=== PATIENT | female | born 1955 | race Caucasian/White ===

== ENCOUNTER → 2016-08-29 | Day surgery (SDC) | payer OTHER ==
[~2016-08-29] VITALS: Ht 160 cm; Wt 75.7 kg
[~2016-08-29] MED LIST: ATIVAN0.5 M1 PO; CRESTOR10 M1 PO; PAXIL10 M1 PO; SYNTHROID125 MCG PO; SYNTHROID25 MCG PO
--- NOTE | 2016-08-29 11:33 | Operative Report ---
Operative/Inv Procedure Report Surgery Date: 08/29/16 Name of Procedure: Left L4 5 laminectomy, microdiscectomy Left L4 5 foraminotomy Pre-Operative Diagnosis: Left L4 5 stenosis, disc herniation Post-Operative Diagnosis: Same Estimated Blood Loss: scant Surgeon/Shingle Cutter: MARY CAVANAUGH,MONICA Hebert Anesthesia: general endotracheal tube IV Fluids: 1.1 L crystalloid Urine Output: 100 mL via Watts Drains: None Specimens: L4 5 disc material Complications: None Condition: Stable Operative Indication: Patient is a 60-year-old woman with persistent and progressive left lumbar radiculopathy despite conservative treatment. MRI imaging lumbar spine identifies a broad posterior L4 5 disc protrusion with progression over 6 months. This in conjunction with hypertrophic facet and ligamentous changes results in significant left L4 5 lateral recess and foraminal stenosis and compression of the L4 and L5 roots. In light of the patient's failure to respond to nonoperative treatment, she now presents for surgical decompression. Its and alternatives of surgery were explained to the patient in detail. She understood and elected to proceed. Written operative consent was obtained. Operative/Procedure Note Note: Patient was taken to the operating room. After patient identification and surgical timeout, the patient underwent the smooth induction of general endotracheal anesthesia without incident. Following intubation a Watts catheter was sterilely inserted. DVT prophylaxis was utilized throughout the case. Patient was given 2 g of IV Preoperative Prophylaxis. With All Tubes and Lines Secured, the Patient Was Carefully Turned to the Prone Position on Gel Rolls taking care to ensure that all pressure points were well-padded. The lumbar region the low back was widely prepped and draped in usual sterile fashion using povidone iodine solution. A vertical midline skin incision was marked over L4 5 and a small gauge spinal needle was placed superficially and a localizing lateral x-ray obtained and confirmed the correct level. The skin was infiltrated with 10 mL of local anesthetic. Skin incision was made with a 10 blade knife. Dissection was carried down through subcutaneous tissue with the Bovie to the lumbodorsal fascia. The fascia was incised in midline and a subperiosteal dissection of the lumbar paravertebral muscles was performed on the left with the Bovie exposing the underlying spinous processes and lamina from L4 to L5. The medial facet and the pars interarticularis of L4 on the left were identified and a self-retaining retractor was placed beneath the muscle. The presumed L4 lamina and intraoperative lateral lumbar x-ray obtained and confirmed this to be at the level of the L4 5 disc space. With the correct level verified, we proceeded to perform a laminotomy of the inferior left L4 lamina using combination the Midas Justo and Kerrison rongeurs. We extended the laminotomy rostrally to the level of the mid pars of L4 and was careful to leave enough of a strut of the pars so as not to compromise the inferior articular facet process. Ligamentum flavum was elevated and stripped in the underlying epidural fat and dura of the thecal sac and left L5 root were identified. End of the decompression caudally to the level of the L5 pedicle and a medial facetectomy of the left L4 5 joint was undertaken to decompress lateral recess. The thickened ligamentum flavum was stripped from the lateral canal and the dura was widely decompressed. We then gently mobilize the dural sac and left L5 root to the midline under a Scovel hand-held retractor and inspected the L4 5 disc annulus. The disc was noted to be somewhat prominent but there was no obvious focal herniation. The annulus was coagulated with a bipolar and incised in a rectangular fashion with an 11 blade knife. Discectomy was performed with small straight and angled curettes and pituitary rongeurs. We did use a 90 reverse curet to decompress the subcutaneous from the lateral aspect of the disc to further decompress the foramen and multiple fragments were removed and passed off as specimen. The [place] elevator was used to to explore the left L5 root to the level of the L5-S1 neuroforamen just beyond the pedicle and the ventral epidural space appeared to be widely patent and there did not seem to be any further compression of the root. Likewise, the [place] was used to explore the ventral epidural space at disc space level which showed it to be patent. There was his general bulge of the disc across midline but to plenty of room compression of the thecal sac. The wound was then copiously irrigated with sterile normal saline. Meticulous hemostasis was achieved using FloSeal and bone wax on the cut surfaces. Once hemostasis was assured, the patient was Valsalva to 35 mmHg 2 with the wound staying completely dry and no evidence of bleeding or CSF leak. We then began wound closure. A small pledget of thrombin-soaked Gelfoam was gently placed over the exposed dura. A piece of fat harvested from subcutaneous tissue was placed in the interlaminar defect. The wound was copiously irrigated with sterile normal saline. The lumbodorsal fascia was reapproximated with interrupted 0 Vicryl suture. 20 mL of long-acting local anesthetic was used to infiltrate the left paravertebral muscle The superficial tissues were copiously irrigated with antibiotic sterile saline irrigation and closed in layers with interrupted 2-0 Vicryl suture in the subcutaneous tissue and and a 4-0 Vicryl subcuticular stitch in the skin. The wound was cleaned and dried. Steri-Strips and a sterile occlusive dressing was placed. The patient was gently returned to the supine position, awakened, extubated, and taken to PACU in stable condition. She was noted to be moving all 4 extremities at the completion of the case. All sponge, needle, and instrument counts were correct at the completion of the procedure 3.
--- NOTE | 2016-08-29 18:08 | RADIOLOGY REPORT ---
EXAMINATION: XR LUMBAR SPINE CLINICAL INFORMATION: Lumbar surgery. COMPARISON: Lumbar MRI of 08/24/2016. TECHNIQUE: 2 of portable crosstable lateral views of the lumbar spine were obtained the first at 0905: and the other at 09:29 on 08/29/2016. FINDINGS: The first film demonstrates a needle projecting over the inferior aspect of the L4 spinous process. The second film shows a probe posteriorly at the level of the L4-L5 interspace with evidence of a laminectomy at L4-L5. IMPRESSION: Intraoperative films obtained for surgical localization as described above.
== END ==
LOC: STS 03:45
DX: M51.16 Intervertebral disc disorders with radiculopathy, lumbar region (principal); M99.73 Connective tissue and disc stenosis of intervertebral foramina of lumbar region; E78.5 Hyperlipidemia, unspecified; K57.90 Diverticulosis of intestine, part unspecified, without perforation or abscess without bleeding
CPT/HCPCS: 72020; 88304; C9290; J0131; J0690; J2250

== ENCOUNTER → 2016-12-18 | Day surgery (SDC) | payer OTHER ==
[~2016-12-18] VITALS: Ht 160 cm; Wt 74.4 kg
--- NOTE | 2016-12-18 11:24 | Operative Report ---
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 She was attending physical therapy for low back strengthening when, during the course of the particular exercise, developed abrupt recurrent pain in her back and left leg. Her symptoms persisted and let to a follow-up MRI study which now showed a sizable caudally extruded disc herniation extending to the left L5 pedicle and with significant impingement of the left lateral recess and left L5 nerve root. Surgical versus nonoperative treatment options were discussed in detail. Initially the patient elected to pursue a trial of epidural steroid injections but, as her pain persisted quite severely and she developed a paresthesias and slight weakness, she instead decided to pursue re-redo microdiscectomy. The risks and benefits of surgery as well as nonsurgical alternatives were explained to the patient in detail. She understood and elected to proceed. Written operative consent was obtained. Operative/Procedure Note Note: Patient was taken the operating room. Appropriate patient identification, the patient underwent smooth induction of general endotracheal anesthesia without incident. With the tube secured in position, Watts catheter was sterilely inserted. DVT prophylaxis utilized throughout the case with all tubes and lines secured the patient was carefully turned to prone position on the gel rolls taken care to ensure that all pressure points well-padded. She was given 2 g of IV Preoperative Prophylaxis. Lumbar Region Was Widely Prepped and draped using povidone iodine solution. Her previous vertical midline skin incision was marked and infiltrated with local anesthetic. Skin incision was made with a 10 blade knife dissection was carried down through subcutaneous tissue with the Bovie to the lumbodorsal fascia. Significant scarring from the prior surgery was appreciated. The fascia was incised in the midline and a subperiosteal dissection of the lumbar paravertebral muscles was performed on the left side using the Bovie and a [place]ana elevator devious laminotomy was encountered. We extended the exposure to ensure visualization of the left L4 pars interarticularis and up to the medial aspect of the L4 5 facet joint. Self-retaining retractor was placed. Using a straight and angled curettes, the limits of the previous laminotomy medial facetectomy were developed and appreciated down to the level of the spinal canal. We extended the bony decompression 1 or 2 mm further using combination of Midas Justo and Kerrison rongeurs. Deep ligamentum flavum was stripped with the Kerrisons exposing the lateral Gutter of the epidural space. We also extended the exposure Mall caudally taking off the rostral aspect of the L5 lamina in order to identify the medial aspect of the left L5 pedicle. A [place] 4 elevator was placed just caudal to the disc space and intraoperative localizing x-ray was confirmed and noted to be exactly beneath the L4 5 interspace. With the correct levels verified, we then gently dissected the's epidural scar from the lateral aspect of the dura and the sleeve of the L5 root. We gently develop this plane and were able to mobilize the dural sac to the midline under a Scovel hand-held retractor. The operating microscope was sterilely draped and brought into the field and the remainder of the procedure done under high-power visualization. The disc space of L4 5 was appreciated. The annulus was coagulated and incised in an 11 blade in a rectangular fashion and a discectomy was done with small straight and angled curettes and pituitary rongeurs. A significant protrusion of the disc was noted with the subligamentous extruded fragment both the rostral and a larger fragment caudally beneath the left L5 root. These were carefully work with a microhook and elects to [place] elevator and were removed with pituitary rongeurs. Reverse-angle curettes were further utilized in the disc space and all loose disc material was resected with straight and angled up angled pituitary rongeurs until an excellent decompression both ventral to the thecal sac and to the left L5 root was accomplished. We are able to take a [place] elevator and palpate both inferior and superior to the exiting L5 nerve root and were able to pass the [place] all the way out to the neuroforamen beyond the L5 pedicle with no difficulty SSEPs suggesting it was well decompressed. The neural elements were noted to be pulsatile. A small amount of residual disc which was Heavily stuck to the ventral lateral dural sac a was left in place and gently coagulated with a bipolar rather than attempt to remove it and created a dural laceration. A [place] could easily be passed completely under the ventral thecal sac and the entire interspace appeared well decompressed. We then copiously irrigated the interspace. The disc space was also irrigated under forceful pressure to remove any residual disc fragments and we then began wound closure. Meticulous hemostasis was achieved prior to closure using combination of irrigation, Surgifoam, and thrombin-soaked Gelfoam patties. Bone edges were waxed. The patient was Valsalva to 30 mm appropriate 2 with no egress of blood or CSF and wound closure was begun. The fascia was reapproximated interrupted 0 Vicryl suture. The subcutaneous tissue was copiously irrigated and closed in layers with interrupted 3-0 Vicryl suture in the dermis and a running 4-0 Vicryl septic stitch in the skin. Was clean and dry. Steri-Strips and a sterile occlusive dressing was placed. The patient was then returned to the supine position, awakened extubated and taken to PACU in stable condition. She was noted to be moving all 4 extremities at the completion of the case. All sponge, needle, and instrument counts were correct at the completion of the procedure 3.
--- NOTE | 2016-12-18 16:26 | RADIOLOGY REPORT ---
EXAMINATION: XR LUMBAR SPINE CLINICAL INFORMATION: Lumbar disc excision. COMPARISON: Radiographs from 11/20/2016. MRI from 11/30/2016. TECHNIQUE: Lateral intraoperative radiograph of the lumbar spine was obtained. FINDINGS: Surgical instruments are directed to the herniated disc at the L4-L5 level. The lumbar vertebra have normal height and alignment. IMPRESSION: This single lateral view shows that spinal surgery is directed to the appropriate level (L4-L5).
== END ==
LOC: STS 03:03 → EDSTATUS 07:00 → STS 07:00
DX: M51.26 Other intervertebral disc displacement, lumbar region (principal); G96.19 Other disorders of meninges, not elsewhere classified; E03.9 Hypothyroidism, unspecified; E78.5 Hyperlipidemia, unspecified; K57.90 Diverticulosis of intestine, part unspecified, without perforation or abscess without bleeding; F17.200 Nicotine dependence, unspecified, uncomplicated; Z87.442 Personal history of urinary calculi
CPT/HCPCS: 72020; 88304; C9290; J0131; J0690; J2250; J3370